=== PATIENT | female | born 1960 | race African-American/Black ===

== ENCOUNTER 2017-07-24 11:49 | Inpatient (IN) | payer MEDICAID, OTHER ==
[~2017-07-24] VITALS: Ht 160 cm; Wt 59.0 kg
[~2017-07-24 11:49] MED LIST: Bisacodyl PO; CARI350T PO; DILT180C69 PO; DIPH25CA83 PO; Docusate Sodium PO; HYDR-522 PO; HYDR28CR28 TP; LORA2TAB95 PO; Lactulose PO; METO5TAB94 PO; Midodrine Hcl PO; REN800 PO; SUCR1TAB30 PO; TAP5 PO
[2017-07-24] MEDS ORDERED: SODIUM CHLORIDE 0.9% 1000ML BAG (SEPSIS BOLUS) IV ONE (12:30)
[2017-07-24] MEDS ORDERED: HYDROCODONE/ACETAMINOPHEN 5/325MG TABLET PO ONE (13:15)
[2017-07-24] MEDS ORDERED: HYDROCODONE/ACETAMINOPHEN 5/325MG TABLET ONE (13:18)
[2017-07-24 13:24] LABS: BASOPHILS % 1.6 % (0.0-2.0); EOSINOPHILS % 5.9 % (0.0-5.0); HEMATOCRIT. 32.1 % (36.0-48.0); HEMOGLOBIN. 10.5 g/dL (12.0-16.0); LYMPHOCYTES % 34.8 % (20.0-50.0); MEAN CORPUSCULAR HEMOGLOBIN 28.9 pg (28.0-32.0); MEAN CORPUSCULAR VOLUME 88.1 fL (81.0-99.0); MEAN PLATELET VOLUME 10.3 fl (7.4-10.4); MONOCYTES % 11.7 % (2.0-8.0); PLATELET 151 x1000/uL (130-400); RED BLOOD CELL COUNT 3.64 mill/uL (4.2-5.4); RED CELL DISTRIBUTION WIDTH 16.6 % (11.6-14.6)
[2017-07-24 13:26] LABS: INR 1.1; PARTIAL THROMBOPLASTIN TIME 31.6 sec (23.4-31.0)
[2017-07-24 13:32] LABS: PHOSPHORUS 5.6 mg/dL (2.5-4.9)
[2017-07-24] MEDS ORDERED: VANCOMYCIN 1 G PREMIX 200 ML IV SCH (14:00)
[2017-07-24 16:30] VITALS: BP 154/93
[2017-07-24] MEDS ORDERED: HYDROCODONE/ACETAMINOPHEN 5/325MG TABLET PO PRN (18:00)
[2017-07-24] MEDS ORDERED: ONDANSETRON HCL 4MG/2ML VIAL IV PRN (18:00)
[2017-07-24] MEDS ORDERED: IPRATROPIUM/ALBUTEROL 0.5-3(2.5)MG/3ML NEB INH PRN (18:00)
[2017-07-24] MEDS ORDERED: MAGNESIUM/ALUMINUM HYDROXIDE/SIMETHICONE 30ML UDC PO PRN (18:00)
[2017-07-24] MEDS ORDERED: ACETAMINOPHEN 325MG TABLET PO PRN (18:00)
[2017-07-24] MEDS ORDERED: DOCUSATE SODIUM 100MG CAPSULE PO PRN (18:00)
[2017-07-24] MEDS ORDERED: CLONIDINE 0.1MG TABLET PO PRN (18:00)
[2017-07-24 20:00] VITALS: BP 155/92
[2017-07-24] MEDS ORDERED: DOCUSATE SODIUM 250MG CAPSULE PO PRN (20:30)
[2017-07-24] MEDS ORDERED: CARISOPRODOL 350 MG TABLET PO PRN (20:30)
[2017-07-24] MEDS ORDERED: BISACODYL 5MG TABLET PO PRN (20:30)
[2017-07-25] VITALS: BP 166/90
[2017-07-25] MEDS: SUCRALFATE 1G TABLET PO SCH ×5 (00:16→20:44)
[2017-07-25] MEDS: METOCLOPRAMIDE HCL 5MG TABLET PO SCH ×5 (00:17→20:44)
[2017-07-25] MEDS: LORAZEPAM 1MG TABLET PO PRN ×2 (02:03→20:51)
[2017-07-25 04:00] VITALS: BP 147/82
[2017-07-25] MEDS: HYDROCODONE/APAP 7.5/325MG 1 TAB TABLET PO PRN (06:34)
[2017-07-25 06:57] LABS: BASOPHILS % 1.6 % (0.0-2.0); EOSINOPHILS % 6.2 % (0.0-5.0); HEMATOCRIT. 33.2 % (36.0-48.0); HEMOGLOBIN. 10.8 g/dL (12.0-16.0); LYMPHOCYTES % 36.7 % (20.0-50.0); MEAN CORPUSCULAR HEMOGLOBIN 28.8 pg (28.0-32.0); MEAN CORPUSCULAR VOLUME 88.3 fL (81.0-99.0); MEAN PLATELET VOLUME 10.2 fl (7.4-10.4); MONOCYTES % 11.1 % (2.0-8.0); NEUTROPHILS % 44.4 % (40.0-76.0); PLATELET 131 x1000/uL (130-400); RED BLOOD CELL COUNT 3.76 mill/uL (4.2-5.4); RED CELL DISTRIBUTION WIDTH 16.4 % (11.6-14.6)
[2017-07-25 08:00] VITALS: BP 163/88
[2017-07-25] MEDS: SEVELAMER CARBONATE 800 MG TABLET PO SCH ×3 (08:47→17:33)
[2017-07-25] MEDS: METHIMAZOLE 5MG TABLET PO SCH ×2 (08:47→17:32)
[2017-07-25] MEDS: DILTIAZEM HCL 180MG CAPSULE CD 24HR PO SCH (08:51)
[2017-07-25 12:00] VITALS: BP 162/89
[2017-07-25] MEDS: MUPIROCIN 2% OINT 22GM TOP SCH ×2 (13:02→19:29)
[2017-07-25] MEDS ORDERED: VANCOMYCIN 1 G PREMIX 200 ML IV NR (14:00)
[2017-07-25 16:00] VITALS: BP 119/93
[2017-07-25] MEDS ORDERED: DIPHENHYDRAMINE 25MG CAPSULE PO SCH (19:00)
[2017-07-25 20:00] VITALS: BP 150/94
[2017-07-26] VITALS: BP 154/78
[2017-07-26 04:00] VITALS: BP 155/87
[2017-07-26 06:24] LABS: BASOPHILS % 1.4 % (0.0-2.0); EOSINOPHILS % 6.7 % (0.0-5.0); HEMATOCRIT. 33.8 % (36.0-48.0); HEMOGLOBIN. 10.9 g/dL (12.0-16.0); LYMPHOCYTES % 34.1 % (20.0-50.0); MEAN CORPUSCULAR HEMOGLOBIN 28.5 pg (28.0-32.0); MEAN CORPUSCULAR VOLUME 87.9 fL (81.0-99.0); MEAN PLATELET VOLUME 10.1 fl (7.4-10.4); MONOCYTES % 11.7 % (2.0-8.0); NEUTROPHILS % 46.1 % (40.0-76.0); PLATELET 142 x1000/uL (130-400); RED BLOOD CELL COUNT 3.84 mill/uL (4.2-5.4); RED CELL DISTRIBUTION WIDTH 16.6 % (11.6-14.6)
[2017-07-26] MEDS: METOCLOPRAMIDE HCL 5MG TABLET PO SCH ×2 (06:27→12:59)
[2017-07-26] MEDS: SUCRALFATE 1G TABLET PO SCH ×2 (06:27→12:59)
[2017-07-26] MEDS: HYDROCODONE/APAP 7.5/325MG 1 TAB TABLET PO PRN (06:28)
[2017-07-26 08:00] VITALS: BP 150/82
[2017-07-26] MEDS: SEVELAMER CARBONATE 800 MG TABLET PO SCH ×2 (08:23→12:59)
[2017-07-26] MEDS: METHIMAZOLE 5MG TABLET PO SCH (08:23)
[2017-07-26] MEDS: DILTIAZEM HCL 180MG CAPSULE CD 24HR PO SCH (08:31)
[2017-07-26 12:09] VITALS: BP 152/84
[2017-07-26] MEDS: MUPIROCIN 2% OINT 22GM TOP SCH (12:59)
== END 2017-07-26 14:30 | disposition left against medical advice (07) | DRG 466 ==
LOC: ER 12:36 → EDBEDREQ 14:00 → ENRESERV 14:31 → 6EST 16:30 → 6WST 07-25 01:56
PROVIDERS: ADMIT Internal Medicine; ATTEND Internal Medicine
PROC: 5A1D00Z (ICD-10-PCS; principal; 2017-07-24)
DX: T82.7XXA Infection and inflammatory reaction due to other cardiac and vascular devices, implants and grafts, initial encounter (principal); N18.6 End stage renal disease; I12.0 Hypertensive chronic kidney disease with stage 5 chronic kidney disease or end stage renal disease; T82.838A Hemorrhage due to vascular prosthetic devices, implants and grafts, initial encounter; K74.60 Unspecified cirrhosis of liver; E05.90 Thyrotoxicosis, unspecified without thyrotoxic crisis or storm; E03.9 Hypothyroidism, unspecified; F17.210 Nicotine dependence, cigarettes, uncomplicated; J44.9 Chronic obstructive pulmonary disease, unspecified; M06.9 Rheumatoid arthritis, unspecified; Y84.1 Kidney dialysis as the cause of abnormal reaction of the patient, or of later complication, without mention of misadventure at the time of the procedure; Z53.21 Procedure and treatment not carried out due to patient leaving prior to being seen by health care provider; B19.20 Unspecified viral hepatitis C without hepatic coma; M19.90 Unspecified osteoarthritis, unspecified site; Z83.49 Family history of other endocrine, nutritional and metabolic diseases; Z99.2 Dependence on renal dialysis; Z82.49 Family history of ischemic heart disease and other diseases of the circulatory system; Z79.899 Other long term (current) drug therapy; Z90.49 Acquired absence of other specified parts of digestive tract; Z71.6 Tobacco abuse counseling; Y92.89 Other specified places as the place of occurrence of the external cause; A49.01 Methicillin susceptible Staphylococcus aureus infection, unspecified site
CPT/HCPCS: 36415; 71010; 76881; 80048; 80061; 83605; 83735; 84100; 84443; 85025; 85610; 85730; 87040; 87070; 87205; 93005; 96365; 99285; J3370; J7030; J7050; J8597; Q0163

== ENCOUNTER 2018-04-08 22:23 | Inpatient (IN) | payer MEDICAID, OTHER ==
[~2018-04-08] VITALS: Ht 160 cm; Wt 54.4 kg
[~2018-04-08 22:23] MED LIST changes: -DILT180C69 PO
[2018-04-08] MEDS ORDERED: VANCOMYCIN 1 G PREMIX 200 ML IV ONE (23:00)
[2018-04-08] MEDS ORDERED: PIPERACILLIN/TAZ 3.375G PREMIX 50 ML IV ONE (23:00)
[2018-04-09] MEDS ORDERED: ONDANSETRON HCL 4MG/2ML VIAL IV STA (00:15)
[2018-04-09 00:21] LABS: BASOPHILS % 1.2 % (0.0-2.0); EOSINOPHILS % 1.3 % (0.0-5.0); HEMOGLOBIN. 9.2 g/dL (12.0-16.0); LYMPHOCYTES % 24.5 % (20.0-50.0); MEAN CORPUSCULAR HEMOGLOBIN 27.9 pg (28.0-32.0); MEAN CORPUSCULAR VOLUME 85.3 fL (81.0-99.0); MEAN PLATELET VOLUME 10.9 fl (7.4-10.4); PLATELET 177 x1000/uL (130-400); RED BLOOD CELL COUNT 3.28 mill/uL (4.2-5.4); RED CELL DISTRIBUTION WIDTH 16.9 % (11.6-14.6)
[2018-04-09] MEDS ORDERED: ONDANSETRON HCL 4MG/2ML VIAL ONE (00:25)
[2018-04-09 00:26] LABS: INR 1.2
[2018-04-09 00:30] LABS: CHLORIDE 94 mEq/L (98-107)
[2018-04-09 00:33] LABS: ETHANOL BLOOD < 10 mg/dL
[2018-04-09] MEDS ORDERED: SODIUM CHLORIDE 0.9% 250 ML IV ONE (05:04)
[2018-04-09 08:10] VITALS: BP 91/69
[2018-04-09] MEDS ORDERED: ONDANSETRON HCL 4MG/2ML VIAL IV PRN (09:15)
[2018-04-09] MEDS ORDERED: PIPERACILLIN/TAZ 3.375G PREMIX 50 ML IV SCH (09:15)
[2018-04-09] MEDS ORDERED: HYDROCODONE/ACETAMINOPHEN 5/325MG TABLET PO PRN (09:30)
[2018-04-09 09:48] VITALS: BP 91/69
[2018-04-09] MEDS: HYDROCODONE/ACETAMINOPHEN 10/325MG TABLET PO PRN ×2 (10:24→20:06)
[2018-04-09] MEDS ORDERED: PIPERACILLIN/TAZ 2.25G PREMIX 50 ML IV SCH ×2 (11:00→18:00)
[2018-04-09 12:00] VITALS: BP 91/69
[2018-04-09] MEDS: DIPHENHYDRAMINE 50MG/ML VIAL IV PRN ×2 (14:44→21:48)
[2018-04-09] MEDS ORDERED: IPRATROPIUM/ALBUTEROL 0.5-3(2.5)MG/3ML NEB HHN PRN (14:45)
[2018-04-09 16:00] VITALS: BP 90/69
[2018-04-09 17:36] LABS: CLARITY URINE CLEAR (CLEAR); COLOR URINE YELLOW (YELLOW); KETONES URINE NEGATIVE (NEGATIVE); LEUKOCYTE ESTERASE URINE NEGATIVE (NEGATIVE); NITRITE URINE NEGATIVE (NEGATIVE); OCCULT BLOOD URINE NEGATIVE (NEGATIVE); PROTEIN URINE NEGATIVE (NEGATIVE); SPECIFIC GRAVITY URINE 1.004 (1.005-1.030); UROBILINOGEN URINE 0.2 E.U./dL (0.2-1.0)
[2018-04-09] MEDS: IPRATROPIUM/ALBUTEROL 0.5-3(2.5)MG/3ML NEB HHN SCH ×2 (17:40→20:58)
[2018-04-09 18:00] LABS: *AMPHETAMINES SCREEN URINE NEGATIVE (NEGATIVE); *BARBITURATES SCREEN URINE NEGATIVE (NEGATIVE); *BENZODIAZEPINES SCREEN URINE NEGATIVE (NEGATIVE); *COCAINE SCREEN URINE NEGATIVE (NEGATIVE)
[2018-04-09 18:01] LABS: CANNABINOID URINE SCREEN NEGATIVE (NEGATIVE); METHADONE URINE SCREEN NEGATIVE (NEGATIVE); OPIATES URINE SCREEN NEGATIVE (NEGATIVE); PHENCYCLIDINE URINE SCREEN NEGATIVE (NEGATIVE)
[2018-04-09 19:08] LABS: BG BASE EXCESS -11.6 mmol/L (-2.0-2.0); BG CARBOXYHEMOGLOBIN 0.3 % (0.5-1.5); BG DEOXYHEMOGLOBIN 1.1 % (0.0-5.0); BG FRACTION INSPIRED OXYGEN 34; BG HCO3 ACT 13.3 mmol/L (22.0-26.0); BG OXYGEN SATURATION 98.9 % (92.0-98.5); BG OXYHEMOGLOBIN 98.6 % (94.0-97.0); BG PO2 162.7 mmHg (75.0-100.0); BG SAMPLE SITE RIGHT RADIAL; BG TOTAL HEMOGLOBIN 9.4 g/dL (12.0-18.0); BG VENT MODE NASAL CANNULA
[2018-04-09 20:00] VITALS: BP 87/39
[2018-04-09 20:06] VITALS: BP 87/39
[2018-04-09] MEDS ORDERED: VANCOMYCIN 500 MG PREMIX 100 ML IV SCH (21:00)
[2018-04-10] MEDS ORDERED: DEXTROSE 50% WATER 50ML SYRINGE IV ONE ×3 (00:43→14:41)
[2018-04-10] MEDS ORDERED: SODIUM BICARBONATE 7.5% 0.9 MEQ/ML 50ML SYR IV ONE (14:41)
[2018-04-10] MEDS ORDERED: EPINEPHRINE 0.1MG/ML (1:10,000) 10ML SYR ONE (14:41)
[2018-04-10] MEDS ORDERED: CALCIUM CHLORIDE 1GM/10ML SYR IV ONE (14:41)
== END 2018-04-10 01:40 | disposition expired | DRG 133 ==
LOC: ER 22:47 → 6WST 04-09 02:14 → ENRESERV 04-09 06:57 → MICUSO 04-10 01:00
PROVIDERS: ADMIT Internal Medicine; ATTEND Internal Medicine
PROC: 5A1D70Z Performance of Urinary Filtration, Intermittent, Less than 6 Hours Per Day (ICD-10-PCS; principal; 2018-04-09)
PROC: 5A1935Z Respiratory Ventilation, Less than 24 Consecutive Hours (ICD-10-PCS; 2018-04-10)
PROC: 0BH17EZ Insertion of Endotracheal Airway into Trachea, Via Natural or Artificial Opening (ICD-10-PCS; 2018-04-10)
DX: J96.00 Acute respiratory failure, unspecified whether with hypoxia or hypercapnia (principal); I13.2 Hypertensive heart and chronic kidney disease with heart failure and with stage 5 chronic kidney disease, or end stage renal disease; N18.6 End stage renal disease; E87.2 Acidosis; I95.9 Hypotension, unspecified; I31.3 Pericardial effusion (noninflammatory); R18.8 Other ascites; E87.8 Other disorders of electrolyte and fluid balance, not elsewhere classified; E87.1 Hypo-osmolality and hyponatremia; J45.909 Unspecified asthma, uncomplicated; D25.9 Leiomyoma of uterus, unspecified; K29.70 Gastritis, unspecified, without bleeding; M06.9 Rheumatoid arthritis, unspecified; D63.8 Anemia in other chronic diseases classified elsewhere; I50.9 Heart failure, unspecified; E05.90 Thyrotoxicosis, unspecified without thyrotoxic crisis or storm; F14.10 Cocaine abuse, uncomplicated; I34.0 Nonrheumatic mitral (valve) insufficiency; F17.210 Nicotine dependence, cigarettes, uncomplicated; K74.60 Unspecified cirrhosis of liver; Z79.899 Other long term (current) drug therapy; Z99.2 Dependence on renal dialysis
CPT/HCPCS: 36415; 36600; 71045; 74176; 80053; 80305; 81003; 82375; 82805; 82962; 83605; 83690; 84484; 85025; 85610; 87040; 87086; 93005; 93306; C1893; G0482; J1200; J2405; J2543; J3370; J3490; J7050; J7620